=== PATIENT | female | born 1960 | race Caucasian/White ===

== ENCOUNTER 2016-12-28 16:47 | Outpatient (CLI) ==
[2016-12-28 17:24] LABS: FLU INTERNAL QC INTERNAL QC VALID; RAPID FLU A NEGATIVE (NEGATIVE); RAPID FLU B NEGATIVE (NEGATIVE)
== END 2016-12-28 16:48 | disposition home or self-care (01) ==
LOC: LAB 16:47
PROVIDERS: ATTEND Nurse Practitioner Family
DX: J02.9 Acute pharyngitis, unspecified (principal); R50.9 Fever, unspecified
CPT/HCPCS: 87651; 87804; 87880

== ENCOUNTER 2017-02-16 10:04 | Outpatient (CLI) ==
[2017-02-16 10:18] LABS: BASOPHILS # (AUTO) 0.1 K/uL (0-0.2); BASOPHILS % (AUTO) 0.8 % (0.0-3.0); EOSINOPHILS # (AUTO) 0.2 K/ul (0.0-0.7); EOSINOPHILS % (AUTO) 2.2 % (0.0-7.0); HEMATOCRIT 39.5 % (37.0-47.0); HEMOGLOBIN 13.7 g/dl (12.0-16.0); IMMATURE GRANULOCYTE % (AUTO) 0.2 % (0.0-5.0); LYMPHOCYTES # (AUTO) 2.1 K/uL (0.60-3.4); LYMPHOCYTES % (AUTO) 22.3 (10.0-50.0); MEAN CORPUSCULAR HEMOGLOBIN 33.4 pg (27.0-31.0); MEAN CORPUSCULAR HGB CONC 34.7 (31.8-35.4); MEAN CORPUSCULAR VOLUME 96.3 fl (81.0-99.0); MONOCYTES # (AUTO) 0.6 K/uL (0.4-2.0); MONOCYTES % (AUTO) 6.5 (0-10); NEUTROPHILS # (AUTO) 6.3 K/ul (2.0-6.9); PLATELET COUNT 252 10^3/uL (140-440); WHITE BLOOD COUNT 9.28 K/ul (4.6-10.2)
[2017-02-16 10:37] LABS: ALBUMIN 3.7 g/dL (3.4-5.0); ALBUMIN/GLOBULIN RATIO 1.16; ANION GAP 13.1; BILIRUBIN,TOTAL 0.24 mg/dL (0.00-1.20); BUN/CREATININE RATIO 22.22; CREATININE 0.63 mg/dL (0.60-1.30); POTASSIUM 4.1 mmol/L (3.5-5.10); TOTAL PROTEIN 6.9 g/dL (6.4-8.2)
== END 2017-02-16 10:05 ==
LOC: LAB 10:04
PROVIDERS: ATTEND Nurse Practitioner Family
DX: E78.1 Pure hyperglyceridemia (principal); I10 Essential (primary) hypertension
CPT/HCPCS: 36415; 80053; 80061; 85025

== ENCOUNTER 2017-03-12 16:04 | Outpatient (CLI) | END 2017-03-12 16:05 | disposition home or self-care (01) | LOC: LAB 16:04 | PROVIDERS: ATTEND Nurse Practitioner Family | DX: E11.9 Type 2 diabetes mellitus without complications (principal) | CPT/HCPCS: 36415; 83036 ==

== ENCOUNTER 2017-03-30 11:12 | Outpatient (CLI) ==
[2017-03-30 11:30] LABS: BASOPHILS # (AUTO) 0.1 K/uL (0-0.2); BASOPHILS % (AUTO) 1.1 % (0.0-3.0); EOSINOPHILS # (AUTO) 0.3 K/ul (0.0-0.7); EOSINOPHILS % (AUTO) 3.7 % (0.0-7.0); HEMATOCRIT 38.9 % (37.0-47.0); HEMOGLOBIN 13.7 g/dl (12.0-16.0); IMMATURE GRANULOCYTE % (AUTO) 0.4 % (0.0-5.0); LYMPHOCYTES # (AUTO) 2.1 K/uL (0.60-3.4); LYMPHOCYTES % (AUTO) 27.6 (10.0-50.0); MEAN CORPUSCULAR HEMOGLOBIN 33.8 pg (27.0-31.0); MEAN CORPUSCULAR HGB CONC 35.2 (31.8-35.4); MONOCYTES # (AUTO) 0.7 K/uL (0.4-2.0); MONOCYTES % (AUTO) 9.7 (0-10); NEUTROPHILS # (AUTO) 4.3 K/ul (2.0-6.9); NEUTROPHILS % (AUTO) 57.5; PLATELET COUNT 242 10^3/uL (140-440); RED BLOOD COUNT 4.05 10^6/ul (4.20-5.40); WHITE BLOOD COUNT 7.54 K/ul (4.6-10.2)
[2017-03-30 11:46] LABS: ALBUMIN 3.8 g/dL (3.4-5.0); ALBUMIN/GLOBULIN RATIO 1.19; BILIRUBIN,TOTAL 0.33 mg/dL (0.00-1.20); BUN/CREATININE RATIO 15.38; CALCIUM 8.8 mg/dL (8.2-10.2); CREATININE 0.65 mg/dL (0.60-1.30)
--- NOTE | 2017-03-30 12:52 | CT ---
EXAM: CT chest with contrast HISTORY: Non-small cell lung cancer with history of right partial pneumonectomy COMPARISON: CT chest 03/30/2016, 06/03/2014 and 08/25/2010 TECHNIQUE: Serial axial images of the chest were obtained after 75 ml of Omnipaque IV contrast was administered. These were obtained from the lung apices to the upper abdomen. FINDINGS: The thyroid is normal. Visualized vessels demonstrate mild scattered atherosclerotic dis ease. There is no dissection, aneurysm or stenosis. The heart is normal in size without pericardia l effusion. There is no mediastinal, hilar or axillary pathologically enlarged lymph nodes. There is no pneumothorax or pleural effusion. There are changes consistent with a right partial pneu monectomy and surgical clips in the right hilum. The minimal adjacent soft tissue associated with th e scar is unchanged. Calcified granuloma in the anterior right upper lobe. There is mild basilar a telectasis in the right lower lobe. The lungs are otherwise clear. Soft tissues in the upper abdomen are unremarkable. There is scattered degenerative disease throug hout the thoracic spine. IMPRESSION: 1. Right upper lobe post-pneumonectomy scar is present with no significant interval change. 2. No evidence of metastatic or residual disease.
== END 2017-03-30 11:13 | disposition home or self-care (01) ==
LOC: LAB 11:12
PROVIDERS: ATTEND Internal Medicine Hematology & Oncology
DX: C34.90 Malignant neoplasm of unspecified part of unspecified bronchus or lung (principal)
CPT/HCPCS: 36415; 80053; 85025

== ENCOUNTER 2017-11-20 14:04 | Outpatient (CLI) | END 2017-11-20 14:05 | disposition home or self-care (01) | LOC: LAB 14:04 | PROVIDERS: ATTEND Nurse Practitioner Family | DX: E78.1 Pure hyperglyceridemia (principal); I10 Essential (primary) hypertension | CPT/HCPCS: 36415; 80053; 80061; 84443; 85025 ==

== ENCOUNTER 2018-03-25 13:49 | Outpatient (CLI) | END 2018-03-25 13:50 | disposition home or self-care (01) | LOC: LAB 13:49 | PROVIDERS: ATTEND Nurse Practitioner Family | DX: E11.9 Type 2 diabetes mellitus without complications (principal); I10 Essential (primary) hypertension; E78.1 Pure hyperglyceridemia | CPT/HCPCS: 36415; 80053; 80061; 83036; 85025 ==

== ENCOUNTER 2018-04-02 08:52 | Outpatient (CLI) ==
--- NOTE | 2018-04-02 10:20 | CT ---
EXAM: CT chest with contra HISTORY: Lung cancer COMPARISON: 03/30/2017 TECHNIQUE: CT chest performed with intravenous contrast. Coronal and sagittal reformatted images ob tained. FINDINGS: Thyroid and thoracic inlet appear normal. Heart normal in size. No pericardial effusion. Aorta normal in caliber. Mild to moderate atherosclerosis. Visualized portion upper abdomen demon strates no acute abnormality. There is a stable hyperenhancing lesion in the liver, measuring 1.1 cm image 54. No acute abnormalities of the bones. No suspicious lytic or blastic lesions identified. Degenerative change in the spine. No lymphadenopathy identified. No pleural effusion or pneumothor ax. Granulomatous calcification. Scarring and/or subsegmental atelectasis, greatest in the lingul a. Postsurgical changes of right upper lobectomy with post pneumonectomy scar in the right lung apex , unchanged. IMPRESSION: 1. Right upper lobe post-pneumonectomy scar with no significant interval change. 2. No evidence of metastatic or residual disease in the chest. 3. Stable hyperenhancing liver lesion, nonspecific, may represent flash filling hemangioma
== END 2018-04-02 08:53 | disposition home or self-care (01) ==
LOC: RAD 08:52
PROVIDERS: ATTEND Internal Medicine Hematology & Oncology
DX: C34.90 Malignant neoplasm of unspecified part of unspecified bronchus or lung (principal)

== ENCOUNTER 2018-09-18 13:04 | Emergency (ER) ==
[2018-09-18 13:19] VITALS: BP 154/92; TEMP 98.2; BMI 24.1
[2018-09-18] MEDS ORDERED: DECADRON 4 MG/ML SDV IM STA (15:03)
[2018-09-18] MEDS ORDERED: DUONEB NEB STA (15:09)
--- NOTE | 2018-09-18 15:45 | CT ---
EXAM: CT of the chest without contrast History: Short of breath Comparison: Chest CT 04/02/2018 Technique: Multiplanar CT images through the chest were obtained without the administration of IV co ntrast Findings: Heart size is normal. No thoracic aortic aneurysm. No pericardial effusion. No pathologi robbie enlarged thoracic lymph nodes. Postsurgical changes and scarring again seen within the right u pper lobe. No consolidated pneumonia. No pleural fluid and no pneumothorax. No suspicious lung mas ses or lung nodules. Within the visualized upper abdomen, no acute findings. No acute osseous abnormalities. Degenerativ e changes of the thoracic spine. Impression: No acute intrathoracic process. Postsurgical changes within the right upper lung.
--- NOTE | 2018-09-18 16:27 | ED.PDOC ---
General ED Provider: Dr. VERONICA MENDOZA Chief Complaint: Respiratory Complaint Stated Complaint: cough, flu like symptoms Time Seen by Physician: 13:13 (seen with blair at all times ) Mode of Arrival: Walk-In Information Source: Patient Exam Limitations: No limitations Primary Care Provider: OPHELIA CAZARES Nursing and Triage Documentation Reviewed and Agree: Yes Does patient meet sepsis criteria?: No System Inflammatory Response Syndrome: Not Applicable Sepsis Protocol: For patient's 13 years and over: Temp is 96.8 and below OR 101 and greater Pulse >90 BPM Resp >20/minute Acutely Altered Mental Status Are patient's symptoms suggestive of a new infection, such as: -Pneumonia -Skin, Soft Tissue -Endocarditis -UTI -Bone, Joint Infection -Implantable Device -Acute Abdominal Infection -Wound Infection -Meningitis -Blood Stream Catheter Infection -Unknown Respiratory Complaint Exam - Respiratory Complaint/Exam Onset/Duration: 1 day Symptoms Are: Still present Timing: Intermittent Initial Severity: Mild Current Severity: Mild Location: Nose, Throat, Chest Character: Reports: Non-productive cough Aggravating: Reports: None Alleviating: Reports: None Associated Signs and Symptoms: Reports: URI, Nasal congestion. Denies: Rapid breathing, Dyspnea, Fever, Chills, Chest pain, Pleuritic chest pain, Wheezing, Hemoptysis, Dizziness, Calf pain, Calf swelling, Edema, Hoarseness, Sinus discomfort, Vomiting, Sore throat, Weight loss, Decreased oral intake, Increased thirst, Increased appetite, Increased urination Related History: Reports: Similar episode History of Healthcare-Acquired Pneumonia: No Related Surgical History: Reports: None Pulmonary Embolism Risk Factors: None Cardiac Risk Factors: Reports: None Pseudomonas Risk Factors: Reports: None Review of Systems - Review Of Systems Constitutional: Reports: No symptoms Eyes: Reports: No symptoms Ears, Nose, Mouth, Throat: Reports: No symptoms Respiratory: Reports: Cough Cardiac: Reports: No symptoms GI: Reports: No symptoms : Reports: No symptoms Musculoskeletal: Reports: No symptoms Skin: Reports: No symptoms Neurological: Reports: No symptoms Endocrine: Reports: No symptoms Hematologic/Lymphatic: Reports: No symptoms All Other Systems: Reviewed and Negative Past Medical History - Past Medical History Previously Healthy: Yes Endocrine: Reports: None Cardiovascular: Reports: None Respiratory: Reports: None Hematological: Reports: None Gastrointestinal: Reports: None Genitourinary: Reports: None Neuro/Psych: Reports: None Musculoskeletal: Reports: None Cancer: Reports: Lung Last Menstrual Period: unknown - Surgical History General Surgical History: Reports: None - Family History Family History: Reports: None - Social History Smoking Status: Current every day smoker, Light tobacco smoker Hx Substance Use: No Alcohol Screening: None Physical Exam - Physical Exam Appearance: Well-appearing, No pain distress, Well-nourished Eyes: PARTHA, EOMI, Conjunctiva clear ENT: Ears normal, Nose normal, Oropharynx normal Respiratory: Airway patent, Breath sounds clear, Breath sounds equal, Respirations nonlabored Cardiovascular: RRR, Pulses normal, No rub, No murmur GI/: Soft, Nontender, No masses, Bowel sounds normal, No Organomegaly Musculoskeletal: Normal strength, ROM intact, No edema, No calf tenderness Skin: Warm, Dry, Normal color Neurological: Sensation intact, Motor intact, Reflexes intact, Cranial nerves intact, Alert, Oriented Psychiatric: Affect appropriate, Mood appropriate Interpretation - Radiology Interpretation Radiology Interpretation By: Radiologist Radiology Results: No acute changes Re-Evaluation - Re-Evaluation Time of Re-Evaluation: 15:00 Status: Improved Vital Signs Stable: Yes Pain Level: 0 Appearance: NAD Lungs: Clear Skin: Warm and Dry Neuro: Alert and Oriented X3 CV: RRR - Re-Evaluation Time of Re-Evaluation: 16:27 Status: Improved Vital Signs Stable: Yes Pain Level: 0 Appearance: NAD Skin: Warm and Dry Neuro: Alert and Oriented X3 CV: RRR Critical Care Note - Critical Care Note Total Time (mins): 0 Course - Course Hematology/Chemistry: 09/18/18 15:01 09/18/18 15:10 Orders, Labs, Meds: Lab Review 09/18/18 09/18/18 09/18/18 15:01 15:08 15:10 WBC 7.17 RBC 3.90 L Hgb 12.7 Hct 37.8 MCV 96.9 MCH 32.6 H MCHC 33.6 RDW Coeff of Masood 12.2 Plt Count 304 Immature Gran % (Auto) 0.1 Neut % (Auto) 55.9 Lymph % (Auto) 30.1 [place] % (Auto) 10.3 H Eos % (Auto) 2.5 Baso % (Auto) 1.1 Immature Gran # (Auto) 0.0 Neut # (Auto) 4.0 Lymph # (Auto) 2.2 [place] # (Auto) 0.7 Eos # (Auto) 0.2 Baso # (Auto) 0.1 Puncture Site lbrach O2 Saturation 98.0 ABG pH 7.452 H ABG pCO2 31.1 L ABG pO2 107.0 H ABG HCO3 21.7 L ABG Total CO2 23 ABG Base Excess -2 [place] Test inpatient services rn FiO2 % 21.0 Sodium 137.6 Potassium 3.51 Chloride 107.5 H Carbon Dioxide 23.0 Anion Gap 10.61 BUN 10.9 Creatinine 0.53 L Estimated GFR (MDRD) 119.00 BUN/Creatinine Ratio 20.56 Glucose 102.9 Calcium 9.26 Total Bilirubin 0.27 AST 22.3 ALT 18.0 Alkaline Phosphatase 91.7 Total Protein 7.88 Albumin 4.49 Globulin 3.39 Albumin/Globulin Ratio 1.32 Influ A Molecular Assay Influ B Molecular Assay 09/18/18 15:34 WBC RBC Hgb Hct MCV MCH MCHC RDW Coeff of Masood Plt Count Immature Gran % (Auto) Neut % (Auto) Lymph % (Auto) [place] % (Auto) Eos % (Auto) Baso % (Auto) Immature Gran # (Auto) Neut # (Auto) Lymph # (Auto) [place] # (Auto) Eos # (Auto) Baso # (Auto) Puncture Site O2 Saturation ABG pH ABG pCO2 ABG pO2 ABG HCO3 ABG Total CO2 ABG Base Excess [place] Test FiO2 % Sodium Potassium Chloride Carbon Dioxide Anion Gap BUN Creatinine Estimated GFR (MDRD) BUN/Creatinine Ratio Glucose Calcium Total Bilirubin AST ALT Alkaline Phosphatase Total Protein Albumin Globulin Albumin/Globulin Ratio Influ A Molecular Assay Negative by naat Influ B Molecular Assay Negative by naat Orders Category Date Time Status ABG DRAW REQUEST Stat CARDIO 09/18/18 15:08 Completed EKG-(ED ONLY) Stat CARDIO 09/18/18 15:10 Completed NEBULIZER TREATMENT Stat CARDIO 09/18/18 15:09 Completed ABG Stat LAB 09/18/18 15:08 Completed CBC W/ AUTO DIFF Stat LAB 09/18/18 15:01 Completed COMPREHENSIVE METABOLIC PANEL Stat LAB 09/18/18 15:10 Completed FLU A/B MOLECULAR Stat LAB 09/18/18 15:34 Completed Ipratropium/Albuterol Neb [Duoneb] MEDS 09/18/18 15:09 Discontinued 1 vial NEB ONCE STA CT CHEST W/O CONTRAST Stat RADS 09/18/18 15:07 Completed Medications Discontinued Medications Generic Name Dose Route Start Last Admin Trade Name Shawna PRN Reason Stop Dose Admin Albuterol/Ipratropium 1 vial 09/18/18 15:09 09/18/18 15:40 Duoneb NEB 09/18/18 15:10 1 vial ONCE STA Administration Vital Signs: Temp Pulse Resp BP Pulse Ox 09/18/18 13:05 98.2 F 97 H 20 154/92 H 98 Departure - Departure Time of Disposition: 16:27 Disposition: HOME SELF-CARE Discharge Problem: Viral syndrome Instructions: Viral Syndrome (ED) Condition: Good Pt referred to PMD for follow-up: Yes IPMP verified?: No Additional Instructions: Please call your Family Physician as soon as possible to schedule a follow-up appointment. Allergies/Adverse Reactions: Allergies No Known Allergies Allergy (Verified 09/18/18 13:17) Home Medications: Ambulatory Orders Flonase 16 gm NS BID PRN 03/16/14 Multivitamin [Multi Vitamin Daily] 1 each PO DAILY 03/16/14 Cetirizine HCl [Zyrtec] 10 mg PO DAILY 10/12/14 Clonazepam [Klonopin] 0.5 mg PO DAILY #30 11/09/16 Risperidone [Risperdal] 0.5 mg PO BEDTIME #90 11/09/16 Trazodone HCl 50 mg PO BEDTIME #30 02/01/17
== END 2018-09-18 16:41 | disposition home or self-care (01) ==
LOC: ED 13:04
DX: B34.9 Viral infection, unspecified (principal); F17.210 Nicotine dependence, cigarettes, uncomplicated
CPT/HCPCS: 36415; 80053; 82803; 85025; 87502; 93005; 93010; 94640; 99283

== ENCOUNTER 2019-01-15 15:08 | Outpatient (CLI) | END 2019-01-15 15:09 | disposition home or self-care (01) | LOC: RHC-LAB 15:08 | PROVIDERS: ATTEND Nurse Practitioner Family | DX: I10 Essential (primary) hypertension (principal); E11.9 Type 2 diabetes mellitus without complications; E78.1 Pure hyperglyceridemia; C34.91 Malignant neoplasm of unspecified part of right bronchus or lung | CPT/HCPCS: 36415; 80053; 80061; 83036; 84443; 85025 ==

== ENCOUNTER 2019-05-26 13:14 | Emergency (ER) ==
[2019-05-26 13:21] VITALS: BP 168/92; TEMP 99; BMI 23.8
--- NOTE | 2019-05-26 13:54 | ED.PDOC ---
General ED Provider: Dr. VERONICA MENDOZA Chief Complaint: Wound Check Stated Complaint: pt had a carpal tunnel surgery and was supposed to have sutures removed on the may 22 but did not follow up Time Seen by Physician: 13:30 (see photos) Mode of Arrival: Walk-In Information Source: Patient Exam Limitations: No limitations Primary Care Provider: OPHELIA CAZARES Nursing and Triage Documentation Reviewed and Agree: Yes Does patient meet sepsis criteria?: No System Inflammatory Response Syndrome: Not Applicable Sepsis Protocol: For patient's 13 years and over: Temp is 96.8 and below OR 101 and greater Pulse >90 BPM Resp >20/minute Acutely Altered Mental Status Are patient's symptoms suggestive of a new infection, such as: -Pneumonia -Skin, Soft Tissue -Endocarditis -UTI -Bone, Joint Infection -Implantable Device -Acute Abdominal Infection -Wound Infection -Meningitis -Blood Stream Catheter Infection -Unknown Musculoskeletal Complaint Exam - Hand/Wrist Complaint/Exam Location of Pain: Reports: Right, Hand, Wrist Mechanism of Injury: Reports: Other (post op) Symptoms Are: Still present Initial Severity: Moderate Current Severity: Mild Location: Reports: Discrete Alleviating: Reports: Rest Aggravating: Reports: None Associated Signs and Symptoms: Denies: Swelling, Redness, Bruising, Fever, Weakness, Numbness, Tingling Hand/Wrist Findings: Present: Ecchymosis. Absent: Swelling, Abnormal contour, Rotation Review of Systems - Review Of Systems Constitutional: Reports: No symptoms Eyes: Reports: No symptoms Ears, Nose, Mouth, Throat: Reports: No symptoms Respiratory: Reports: No symptoms Cardiac: Reports: No symptoms GI: Reports: No symptoms : Reports: No symptoms Musculoskeletal: Reports: Joint pain (right hand wrist pain) Skin: Reports: No symptoms Neurological: Reports: No symptoms Endocrine: Reports: No symptoms Hematologic/Lymphatic: Reports: No symptoms All Other Systems: Reviewed and Negative Past Medical History - Past Medical History Previously Healthy: Yes Endocrine: Reports: None Cardiovascular: Reports: None Respiratory: Reports: None Hematological: Reports: None Gastrointestinal: Reports: None Genitourinary: Reports: None Neuro/Psych: Reports: None Musculoskeletal: Reports: None Cancer: Reports: Lung Last Menstrual Period: N/A - Surgical History General Surgical History: Reports: None - Family History Family History: Reports: None - Social History Smoking Status: Current every day smoker, Light tobacco smoker Hx Substance Use: No Alcohol Screening: None - Immunizations Tetanus Shot up to Date: Yes Physical Exam - Physical Exam Appearance: Well-appearing, No pain distress, Well-nourished Eyes: PARTHA, EOMI, Conjunctiva clear ENT: Ears normal, Nose normal, Oropharynx normal Respiratory: Airway patent, Breath sounds clear, Breath sounds equal, Respirations nonlabored Cardiovascular: RRR, Pulses normal, No rub, No murmur GI/: Soft, Nontender, No masses, Bowel sounds normal, No Organomegaly Musculoskeletal: Normal strength (moved all finger see photos) Skin: Warm, Dry, Normal color Neurological: Sensation intact, Motor intact, Reflexes intact, Cranial nerves intact, Alert, Oriented Psychiatric: Affect appropriate, Mood appropriate Critical Care Note - Critical Care Note Total Time (mins): 0 Course - Course Vital Signs: Temp Pulse Resp BP Pulse Ox 05/26/19 13:15 99.0 F 92 H 20 168/92 H 98 Departure - Departure Time of Disposition: 13:54 Disposition: HOME SELF-CARE Discharge Problem: Encounter for wound re-check Instructions: Care For Your Stitches (ED), Acute Wound Care (ED) Condition: Good Pt referred to PMD for follow-up: Yes IPMP verified?: No Additional Instructions: Please call your Family Physician as soon as possible to schedule a follow-up appointment. Allergies/Adverse Reactions: Allergies No Known Allergies Allergy (Verified 05/26/19 13:24) Home Medications: Ambulatory Orders Flonase 16 gm NS BID PRN 03/16/14 Multivitamin [Multi Vitamin Daily] 1 each PO DAILY 03/16/14 Cetirizine HCl [Zyrtec] 10 mg PO DAILY 10/12/14 Clonazepam [Klonopin] 0.5 mg PO DAILY #30 11/09/16 Risperidone [Risperdal] 0.5 mg PO BEDTIME #90 11/09/16
== END 2019-05-26 13:57 | disposition home or self-care (01) ==
LOC: ED 13:14
DX: G89.18 Other acute postprocedural pain (principal); Z98.890 Other specified postprocedural states; F17.210 Nicotine dependence, cigarettes, uncomplicated
CPT/HCPCS: 99282